=== PATIENT | male | born 1985 | race African-American/Black ===

== ENCOUNTER → 2017-01-01 08:10 | Day surgery (SDC) | payer OTHER ==
[~2017-01-01 08:10] MED LIST: Buffered Lidocaine 1% SYR 3ML* 3 ML/SYR SYRINGE INTRADERM ONE; Buffered Lidocaine 1% SYR 3ML* 3 ML/SYR SYRINGE ONE; Bupivacaine 0.5% W/EPI SDV* 30 ML VIAL ONE; Dexamethasone IV* 4 MG/ML 1 ML (4 MG) IV SLOW PU ONE; Dexamethasone IV* 4 MG/ML 1 ML (4 MG) ONE; DiMENhydriNATE IV* 50 MG/ML VIAL IV PUSH PRN; Famotidine IV* 10 MG/ML 2 ML (20 mg) IV ONE; Famotidine IV* 10 MG/ML 2 ML (20 mg) ONE; HYDROcodone/ACETAMIN 5-325 MG* 1 TAB ONE; HYDROmorphone INJ* 1 MG/ML CARPUJECT SYRINGE IV PRN; Ketorolac INJ* 30 MG/ML 1 ML VIAL ONE; Lidocain 1% EPI 1:100,000 * 30 ML MDV ONE; Lidocaine 1% MPF wEPI 200,000* 30 ML SDV ONE; Lidocaine 2% PF * 5 ML VIAL ONE; Midazolam* 1 MG/ML 2 ML VIAL (2 MG) ONE; Ondansetron INJ* 2 MG/ML VIAL IV PRN; Ondansetron INJ* 2 MG/ML VIAL ONE; PROCHLORPERAZINE INJ 5 MG/ML 2 ML VIAL IV PRN; Propofol* 10 MG/ML 20 ML BTL IV PUSH ONE; Scopolamine 1.5 mg* PATCH TRANSDERM PRN; Scopolamine PATCH Remove* 1 NOTE MISC PATCH OFF ONE; ceFAZolin 2 GM PREMIX (*) 2 GM/50 ML BAG IVPB ONE; fentaNYL* 50 MCG/ML 2 ML VIAL (100 MCG VIAL) IV PRN; fentaNYL* 50 MCG/ML 2 ML VIAL (100 MCG VIAL) ONE
[2017-01-01 15:25] VITALS: BP 113/82
--- NOTE | 2017-01-02 05:05 | OP ---
DATE OF OPERATION: 01/01/17 - [facility] DATE OF : 87 SURGEON: Jay Lincoln MD MANA[employer]ING: MOIZ Campoverde, first aid attendant. ANESTHESIOLOGIST: Dr. Curly Dillon. ANESTHESIA: LMA general. PRE-OP DIAGNOSES: Left knee lateral meniscal tear and lateral meniscal cyst at its periphery. POST-OP DIAGNOSES: Left knee lateral meniscal tear and lateral meniscal cyst at its periphery. OPERATIVE PROCEDURE: Left knee partial lateral meniscectomy. COMPLICATIONS: There were no complications. DRAINS: There were no drains. Tourniquet control was utilized on the left leg. CONDITION: Stable to the recovery room. INDICATIONS: The patinet has had anterior and lateral knee discomfort for months and an MRI scan was done in the recent months showing a lateral meniscal cyst and the surgical care was recommended. The surgery was carefully discussed with him preoperatively today because he was wondering about meniscal repair versus meniscal excision. DESCRIPTION OF PROCEDURE: The patient was brought to the operating room and placed on the operating table in a supine position; and, following the administration of the anesthetic, the left proximal thigh was wrapped with a tourniquet and the left leg was prepped from the tourniquet to the tips of the toes and then draped free and carefully sealed off in usual fashion for arthroscopic surgeries in knee. The left leg, ankle, and foot portion was sealed off with an impermeable drape with a Vi- Drape wrapped around the calf at the top of that. We did our universal protocol time out confirmingly on what is in the plan for left knee arthroscopic surgery. We all agreed and proceeded. The left leg was exsanguinated. The tourniquet elevated to 275. The knee was set up for arthroscopy with the arthroscope lateral to the patellar tendon, probe, and operating instruments medial to the patellar tendon and an in-flow catheter superior medial to the patella. The survey of the joint showed that there was some debris that irrigated out of the joint when we started. The patellofemoral joint was in nice condition. The medial and lateral gutters were clear. There was no abnormality visible in the lateral gutter and at the periphery of the lateral meniscus anterolaterally more at the region of the popliteus hiatus. The tearing of the lateral meniscus was just visible from anterolaterally. The ligamentum mucosum was excised for better visualization along with a little anterior synovium in the notch. In the medial femoral condyle, medial meniscus and medial tibial plateau, normal ACL and PCL appeared normal. I thought the lateral femoral condyle, lateral tibial plateau were normal as well. The lateral meniscus had a flap tear at its junction of the mid and anterior thirds and the substance of the tear was complex. Once the pathology was evident, and I proceeded with a shaver from the anteromedial portal and basket to make the tear smooth and stable at the rims, and the shaver was run anteriorly posteriorly and a basket was used to smooth the posterior side of the tear. Once the unstable portion of the meniscus was excised in this region, then I advanced the shaver through the meniscus to the region where the cyst was located and I also sent a spinal needle through the meniscus tear region several times to the periphery to encourage emptying and scar formation in the cyst. The cyst on the MRI scan was multiloculated and not discrete and not very large. When I pushed on the lateral joint line subsequent to sending the needle and the shaver into the cyst region, I did not see any cystic or jelly like fluid come forth in the meniscal tear region. Once the surgery was complete, final photographs were obtained. The knee was irrigated with another 6 L of saline irrigation solution, then emptied, then instilled with Marcaine 0.5% with epinephrine 28 to 30 mL. The knee was subsequently put through a range of movement. The skin portals were closed with interrupted 3-0 Surgipro and the knee was washed and dried and dressed with Betadine soaked release, sterile gauze, sterile Webril, cryotherapy cuff, ABD pads, and then a 6-inch Richard bandage loosely applied. The patient was returned to the recovery room in stable and satisfactory condition having tolerated the procedure very well. [id number] #: [id number] BILLIE
== END ==
LOC: OR 08:10
PROVIDERS: ATTEND Orthopaedic Surgery
DX: M23.201 Derangement of unspecified lateral meniscus due to old tear or injury, left knee (principal)
CPT/HCPCS: 88304; J0690; J1100; J1885; J2001; J2250; J2405; J2704; J3010